=== PATIENT | male | born 1935 | race Caucasian/White ===

== ENCOUNTER → 2021-06-26 | Day surgery (SDC) | payer MEDICARE, OTHER ==
[~2021-06-26] MED LIST: Bupivacaine 0.5% 30 ML SDV ONE; Dexamethasone 4 MG/ML 5 ML MDV ONE; Dexmedetomidine 200 MCG/2 ML SDV ONE; Lactated Ringers 1,000 ML IV SCH; Lactated Ringers 500 ML ONE; Lidocaine 1% 2 ML ONE; Lidocaine 1% 30 ML SDV ONE; Lidocaine 1% 8 ML ONE; Lidocaine 1%/Sod Bicarbonate in NS 8.4% 1 ML Syringe IDERM PRN; Lidocaine 2% with EPINEPHrine 1:200,000 20 ML SDV ONE; Propofol 200 MG/20 ML SDV ONE; Ropivacaine 0.5% 5 MG/ML 30 ML SDV ONE; Sodium Chloride 0.9% 10 ML Syringe FLUSH PRN; Sodium Chloride 0.9% 10 ML Syringe FLUSH SCH; ceFAZolin 1 GM Vial ONE; ePHEDrine 50 MG/ML SDV ONE; fentaNYL 100 MCG/2 ML SDV ONE
[2021-06-26 11:35] VITALS: BP 122/78; PULSE 66
== END | disposition home or self-care (01) ==
LOC: JD.SDS 07:02
PROVIDERS: ATTEND Podiatrist Foot & Ankle Surgery
DX: M20.11 Hallux valgus (acquired), right foot (principal); M89.8X7 Other specified disorders of bone, ankle and foot; I10 Essential (primary) hypertension; R73.9 Hyperglycemia, unspecified; E78.00 Pure hypercholesterolemia, unspecified; G47.33 Obstructive sleep apnea (adult) (pediatric); G62.9 Polyneuropathy, unspecified; E53.8 Deficiency of other specified B group vitamins; N28.9 Disorder of kidney and ureter, unspecified; G50.0 Trigeminal neuralgia; N32.89 Other specified disorders of bladder; Z86.010 Personal history of colon polyps; Z79.899 Other long term (current) drug therapy; Z88.8 Allergy status to other drugs, medicaments and biological substances; Z98.890 Other specified postprocedural states; Z90.49 Acquired absence of other specified parts of digestive tract; Z87.891 Personal history of nicotine dependence
CPT/HCPCS: 01480; 64450; 76942; J0690; J1100; J2704; J2795; J3010; J3490; J7120

== ENCOUNTER 2021-08-13 18:24 | Emergency (ER) | payer MEDICARE, OTHER ==
[2021-08-13] MEDS ORDERED: Tenecteplase 50 MG Kit ONE (18:43)
[2021-08-13] MEDS ORDERED: Sodium Chloride 0.9% 10 ML Syringe FLUSH PRN (18:53)
[2021-08-13] MEDS ORDERED: Albuterol 0.083% 2.5 MG/3 ML Neb Soln NEB ONE (19:24)
[2021-08-13] MEDS ORDERED: Furosemide 40 MG/4 ML VIAL IVPUSH ONE (19:47)
[2021-08-13 19:52] LABS: CORONAVIRUS COVID-19 NAA NEGATIVE (NEGATIVE)
[2021-08-13] MEDS ORDERED: cefTRIAXone 2 GM in Sodium Chloride 0.9% 100 ML IV ONE (20:39)
[2021-08-13] MEDS ORDERED: Aspirin 81 MG Tab.Chew PO ONE (21:02)
[2021-08-13] MEDS ORDERED: Heparin Sodium/D5W 25,000 UNITS/500 ML BAG IV SCH (21:15)
[2021-08-13] MEDS ORDERED: Heparin Sodium 5,000 Units/ML Vial IVPUSH ONE (21:15)
[2021-08-13 23:13] VITALS: BP 116/73; PULSE 76
== END 2021-08-13 22:45 ==
LOC: JD.ED 18:24
DX: J18.9 Pneumonia, unspecified organism (principal); I21.4 Non-ST elevation (NSTEMI) myocardial infarction; N17.9 Acute kidney failure, unspecified; N39.0 Urinary tract infection, site not specified; R31.9 Hematuria, unspecified; R79.0 Abnormal level of blood mineral; E78.00 Pure hypercholesterolemia, unspecified; I10 Essential (primary) hypertension; Z88.8 Allergy status to other drugs, medicaments and biological substances; Z79.82 Long term (current) use of aspirin; Z79.899 Other long term (current) drug therapy; Z79.01 Long term (current) use of anticoagulants; Z20.822 Contact with and (suspected) exposure to COVID-19
CPT/HCPCS: 0241U; 36415; 36600; 71045; 71250; 80053; 81001; 82803; 83735; 83880; 84484; 85025; 85049; 85379; 85730; 86140; 87040; 87086; 93005; 94640; 96365; 96367; 96375; 99285; A9270; J0696; J1644; J1940; J3490; 93010

== ENCOUNTER 2021-09-19 15:19 | Inpatient (IN) | payer MEDICARE, OTHER ==
[2021-09-19] MEDS ORDERED: Sodium Chloride 0.9% 10 ML Syringe FLUSH PRN (15:50)
[2021-09-19] MEDS ORDERED: Furosemide 40 MG/4 ML VIAL IVPUSH ONE (16:31)
[2021-09-19] MEDS ORDERED: cefTRIAXone 1 GM in Sodium Chloride 0.9% 100 ML IV ONE (17:54)
[2021-09-19] MEDS ORDERED: oxyCODONE 5 MG Tab PO PRN (19:35)
[2021-09-19] MEDS ORDERED: Ondansetron 4 MG/2 ML SDV IV PRN (19:35)
[2021-09-19] MEDS: Acetaminophen 325 MG Tab PO PRN (21:53)
[2021-09-19] MEDS: Sodium Bicarbonate 650 MG Tab PO SCH (21:54)
[2021-09-19] MEDS: Heparin Sodium 5,000 Units/ML Vial SUBCUT SCH (21:56)
[2021-09-20] MEDS ORDERED: traZODone 50 MG Tab PO ONE ×2 (00:28→20:46)
[2021-09-20] MEDS: Furosemide 20 MG/2 ML VIAL IVPUSH SCH ×4 (05:05→20:25)
[2021-09-20] MEDS: Heparin Sodium 5,000 Units/ML Vial SUBCUT SCH ×4 (05:51→21:01)
[2021-09-20] MEDS ORDERED: Magnesium Sulfate/Water 2 GM in Premix Bag 1 BAG IV ONE (09:00)
[2021-09-20] MEDS: Tamsulosin 0.4 MG Cap.ER PO SCH (09:30)
[2021-09-20] MEDS: Finasteride 5 MG Tab PO SCH (09:30)
[2021-09-20] MEDS: Sodium Bicarbonate 650 MG Tab PO SCH ×3 (09:30→20:26)
[2021-09-20] MEDS: Acetaminophen 325 MG Tab PO PRN (10:24)
[2021-09-20] MEDS ORDERED: Polyethylene Glycol 3350 Powder 17 GM Packet PO PRN (14:00)
[2021-09-20] MEDS ORDERED: Magnesium Oxide 400 MG Tab PO SCH (15:30)
[2021-09-20] MEDS: Potassium Chloride 20 MEQ Tab.ER PO SCH ×2 (15:38→20:26)
[2021-09-20] MEDS ORDERED: cefTRIAXone 1 GM in Sodium Chloride 0.9% 100 ML IV SCH (18:00)
[2021-09-20] MEDS ORDERED: Gabapentin 300 MG Cap PO SCH (18:00)
[2021-09-20] MEDS ORDERED: Gabapentin 100 MG Cap PO SCH (18:00)
[2021-09-20] MEDS: Metoprolol Tartrate 25 MG Tab PO SCH (20:26)
[2021-09-20] MEDS: Gabapentin 300 MG Cap PO SCH (20:26)
[2021-09-20] MEDS: cefTRIAXone 1 GM in Sodium Chloride 0.9% 100 ML IV SCH (20:26)
[2021-09-20] MEDS: Gabapentin 100 MG Cap PO SCH (20:32)
[2021-09-20] MEDS ORDERED: Metoprolol Tartrate 25 MG Tab PO SCH (21:00)
[2021-09-21] MEDS: Heparin Sodium 5,000 Units/ML Vial SUBCUT SCH ×3 (05:05→21:00)
[2021-09-21] MEDS ORDERED: Magnesium Sulfate/Water 2 GM in Premix Bag 1 BAG IV ONE (07:30)
[2021-09-21] MEDS: Diltiazem 240 MG Cap.ER PO SCH (09:09)
[2021-09-21] MEDS: Finasteride 5 MG Tab PO SCH (09:09)
[2021-09-21] MEDS: Potassium Chloride 10 MEQ Tab.ER PO SCH ×2 (09:09→20:13)
[2021-09-21] MEDS: Tamsulosin 0.4 MG Cap.ER PO SCH (09:09)
[2021-09-21] MEDS: Sodium Bicarbonate 650 MG Tab PO SCH ×3 (09:09→20:13)
[2021-09-21] MEDS: Magnesium Oxide 400 MG Tab PO SCH ×2 (09:11→20:13)
[2021-09-21] MEDS: Metoprolol Tartrate 25 MG Tab PO SCH ×2 (09:11→20:13)
[2021-09-21] MEDS: Furosemide 40 MG/4 ML VIAL IVPUSH SCH (15:34)
[2021-09-21] MEDS: Gabapentin 300 MG Cap PO SCH (20:13)
[2021-09-21] MEDS: Gabapentin 100 MG Cap PO SCH (20:13)
[2021-09-21] MEDS: cefTRIAXone 1 GM in Sodium Chloride 0.9% 100 ML IV SCH (20:16)
[2021-09-21] MEDS ORDERED: traZODone 50 MG Tab PO ONE (20:48)
[2021-09-21] MEDS: Acetaminophen 325 MG Tab PO PRN (20:56)
[2021-09-22] MEDS: Heparin Sodium 5,000 Units/ML Vial SUBCUT SCH ×3 (05:39→20:46)
[2021-09-22] MEDS: Furosemide 40 MG/4 ML VIAL IVPUSH SCH (05:40)
[2021-09-22] MEDS ORDERED: Magnesium Oxide 400 MG Tab PO ONE (07:12)
[2021-09-22] MEDS: Potassium Chloride 10 MEQ Tab.ER PO SCH ×2 (09:13→20:44)
[2021-09-22] MEDS: Metoprolol Tartrate 25 MG Tab PO SCH ×2 (09:13→20:45)
[2021-09-22] MEDS: Magnesium Oxide 400 MG Tab PO SCH ×2 (09:13→20:45)
[2021-09-22] MEDS: Tamsulosin 0.4 MG Cap.ER PO SCH (09:14)
[2021-09-22] MEDS: Diltiazem 240 MG Cap.ER PO SCH (09:14)
[2021-09-22] MEDS: Sodium Bicarbonate 650 MG Tab PO SCH ×4 (09:14→20:46)
[2021-09-22] MEDS: Finasteride 5 MG Tab PO SCH (09:14)
[2021-09-22] MEDS: Meropenem 1 GM in Sodium Chloride 0.9% 100 ML IV SCH ×2 (09:16→15:30)
[2021-09-22 13:19] LABS: CORONAVIRUS COVID-19 NAA NEGATIVE (NEGATIVE)
[2021-09-22 18:42] LABS: BORDETELLA PARAPERT IS1001 Not Detected (Not Detected)
[2021-09-22] MEDS ORDERED: cefTRIAXone 2 GM in Sodium Chloride 0.9% 100 ML IV SCH (20:00)
[2021-09-22] MEDS: Melatonin 3 MG Tab PO SCH (20:45)
[2021-09-22] MEDS: Gabapentin 300 MG Cap PO SCH (20:46)
[2021-09-22] MEDS: Gabapentin 100 MG Cap PO SCH (20:46)
[2021-09-23] MEDS: Heparin Sodium 5,000 Units/ML Vial SUBCUT SCH ×5 (00:17→22:15)
[2021-09-23] MEDS: Meropenem 1 GM in Sodium Chloride 0.9% 100 ML IV SCH ×3 (00:19→16:24)
[2021-09-23] MEDS: Tamsulosin 0.4 MG Cap.ER PO SCH (08:08)
[2021-09-23] MEDS: Potassium Chloride 10 MEQ Tab.ER PO SCH ×2 (08:08→20:38)
[2021-09-23] MEDS: Magnesium Oxide 400 MG Tab PO SCH ×2 (08:08→20:42)
[2021-09-23] MEDS: Sodium Bicarbonate 650 MG Tab PO SCH ×3 (08:08→20:43)
[2021-09-23] MEDS: Diltiazem 240 MG Cap.ER PO SCH (08:08)
[2021-09-23] MEDS: Finasteride 5 MG Tab PO SCH (08:09)
[2021-09-23] MEDS: Metoprolol Tartrate 25 MG Tab PO SCH ×2 (08:12→20:38)
[2021-09-23] MEDS ORDERED: Furosemide 20 MG/2 ML VIAL IVPUSH SCH (09:15)
[2021-09-23] MEDS: Furosemide 20 MG/2 ML VIAL IVPUSH SCH (16:23)
[2021-09-23] MEDS: Melatonin 3 MG Tab PO SCH (20:42)
[2021-09-23] MEDS: Gabapentin 300 MG Cap PO SCH (20:43)
[2021-09-23] MEDS: Gabapentin 100 MG Cap PO SCH (20:43)
[2021-09-24] MEDS: Meropenem 1 GM in Sodium Chloride 0.9% 100 ML IV SCH ×2 (00:14→07:33)
[2021-09-24] MEDS: Heparin Sodium 5,000 Units/ML Vial SUBCUT SCH ×4 (05:52→23:15)
[2021-09-24] MEDS: Furosemide 20 MG/2 ML VIAL IVPUSH SCH ×2 (05:52→14:06)
[2021-09-24] MEDS: Magnesium Oxide 400 MG Tab PO SCH ×2 (07:59→20:45)
[2021-09-24] MEDS: Potassium Chloride 10 MEQ Tab.ER PO SCH ×2 (07:59→20:44)
[2021-09-24] MEDS: Finasteride 5 MG Tab PO SCH (07:59)
[2021-09-24] MEDS: Metoprolol Tartrate 25 MG Tab PO SCH ×2 (07:59→20:44)
[2021-09-24] MEDS: Sodium Bicarbonate 650 MG Tab PO SCH ×3 (07:59→20:47)
[2021-09-24] MEDS: Tamsulosin 0.4 MG Cap.ER PO SCH (07:59)
[2021-09-24] MEDS: Diltiazem 240 MG Cap.ER PO SCH (07:59)
[2021-09-24] MEDS ORDERED: cefTRIAXone 1 GM in Sodium Chloride 0.9% 100 ML IV SCH (09:30)
[2021-09-24] MEDS: Albuterol 0.083% 2.5 MG/3 ML Neb Soln NEB PRN (13:53)
[2021-09-24] MEDS: Gabapentin 100 MG Cap PO SCH (20:46)
[2021-09-24] MEDS: Gabapentin 300 MG Cap PO SCH (20:46)
[2021-09-24] MEDS: Melatonin 3 MG Tab PO SCH (20:46)
[2021-09-25] MEDS: Heparin Sodium 5,000 Units/ML Vial SUBCUT SCH ×2 (05:30→15:08)
[2021-09-25] MEDS: Furosemide 20 MG/2 ML VIAL IVPUSH SCH ×2 (05:30→15:08)
[2021-09-25] MEDS: Tamsulosin 0.4 MG Cap.ER PO SCH (08:21)
[2021-09-25] MEDS: Magnesium Oxide 400 MG Tab PO SCH (08:21)
[2021-09-25] MEDS: Finasteride 5 MG Tab PO SCH (08:21)
[2021-09-25] MEDS: Diltiazem 240 MG Cap.ER PO SCH (08:21)
[2021-09-25] MEDS: Sodium Bicarbonate 650 MG Tab PO SCH ×2 (08:21→15:08)
[2021-09-25] MEDS: Metoprolol Tartrate 25 MG Tab PO SCH (08:21)
[2021-09-25] MEDS: Potassium Chloride 10 MEQ Tab.ER PO SCH (08:23)
[2021-09-25] MEDS: Cephalexin 250 MG Cap PO SCH ×2 (09:22→15:08)
[2021-09-25] MEDS: Albuterol 0.083% 2.5 MG/3 ML Neb Soln NEB PRN (09:37)
[2021-09-25] MEDS: Acetaminophen 325 MG Tab PO PRN (11:34)
[2021-09-25 12:11] VITALS: BP 114/67; PULSE 81
[2021-09-25] MEDS ORDERED: Sodium Polystyrene Sulfonate 15 GM/60 ML Susp 60 ML Bot PO ONE (12:45)
== END 2021-09-25 14:43 | disposition other institution (70) | DRG 291 ==
LOC: JD.ED 15:19 → JD.MS 19:14
PROVIDERS: ADMIT Hospitalist; ATTEND Hospitalist
PROC: XW033N5 Introduction of Meropenem-vaborbactam Anti-infective into Peripheral Vein, Percutaneous Approach, New Technology Group 5 (ICD-10-PCS; principal; 2021-09-24)
DX: I50.9 Heart failure, unspecified (principal); I13.0 Hypertensive heart and chronic kidney disease with heart failure and stage 1 through stage 4 chronic kidney disease, or unspecified chronic kidney disease; I50.43 Acute on chronic combined systolic (congestive) and diastolic (congestive) heart failure; N18.4 Chronic kidney disease, stage 4 (severe); N17.9 Acute kidney failure, unspecified; I11.0 Hypertensive heart disease with heart failure; N30.01 Acute cystitis with hematuria; E78.5 Hyperlipidemia, unspecified; Z96.0 Presence of urogenital implants; Z20.822 Contact with and (suspected) exposure to COVID-19; K59.09 Other constipation; N42.9 Disorder of prostate, unspecified; J45.909 Unspecified asthma, uncomplicated; R09.02 Hypoxemia; I08.1 Rheumatic disorders of both mitral and tricuspid valves; E87.5 Hyperkalemia; D63.1 Anemia in chronic kidney disease; B96.4 Proteus (mirabilis) (morganii) as the cause of diseases classified elsewhere; E78.00 Pure hypercholesterolemia, unspecified; G47.30 Sleep apnea, unspecified; F17.210 Nicotine dependence, cigarettes, uncomplicated; H54.7 Unspecified visual loss; Z96.653 Presence of artificial knee joint, bilateral; Z97.8 Presence of other specified devices; I25.2 Old myocardial infarction; Z88.8 Allergy status to other drugs, medicaments and biological substances; Z98.49 Cataract extraction status, unspecified eye; Z79.899 Other long term (current) drug therapy
CPT/HCPCS: 0241U; 36415; 51702; 71045; 71046; 80048; 80053; 81001; 82272; 83540; 83605; 83735; 83880; 84132; 84145; 84466; 84484; 85025; 86140; 87040; 87086; 87088; 87186; 87486; 87581; 87633; 87798; 93005; 93306; 93970; 94640; 94761; 96365; 96375; 97110; 97116; 97162; 99285; 93010; 99284; A9270-GY; J0696; J1644; J1940; J2185; J2916; J3475; J3490

== ENCOUNTER 2021-10-05 12:53 | Emergency (ER) | payer MEDICARE, OTHER ==
[2021-10-05] MEDS ORDERED: Lactated Ringers 500 ML IV ONE (15:30)
[2021-10-05] MEDS ORDERED: Lactated Ringers 1,000 ML IV SCH (15:45)
[2021-10-05] MEDS ORDERED: cefTRIAXone 2 GM in Sodium Chloride 0.9% 100 ML IV ONE (18:19)
[2021-10-05 20:15] VITALS: BP 109/64; PULSE 74
== END 2021-10-05 19:00 ==
LOC: JD.ED 12:53
DX: I50.43 Acute on chronic combined systolic (congestive) and diastolic (congestive) heart failure (principal); N17.9 Acute kidney failure, unspecified; N39.0 Urinary tract infection, site not specified; R74.8 Abnormal levels of other serum enzymes; R79.89 Other specified abnormal findings of blood chemistry; E78.00 Pure hypercholesterolemia, unspecified; I25.2 Old myocardial infarction; I10 Essential (primary) hypertension; Z87.891 Personal history of nicotine dependence; Z79.899 Other long term (current) drug therapy; Z88.6 Allergy status to analgesic agent; Z88.8 Allergy status to other drugs, medicaments and biological substances; Z20.822 Contact with and (suspected) exposure to COVID-19
CPT/HCPCS: 36415; 51702; 71045; 71045-26; 80053; 81001; 83605; 83690; 83880; 84484; 85025; 85610; 85730; 87040; 87045; 87046; 87086; 87088; 87186; 87324; 87493; 87899; 93005; 96361; 96365; 99285-25; J0696; J7120; U0002